=== PATIENT | male | born 1990 | race Caucasian/White ===

== ENCOUNTER 2017-02-05 14:35 | Emergency (ER) | payer SELFPAY ==
[~2017-02-05] VITALS: Ht 188 cm; Wt 113.4 kg
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
[2017-02-05] MEDS ORDERED: DIPHTH,PERTUSS(ACELL),TET TOX 0.5 ML DISP.SYRIN. VAX IM ONE (15:30)
[2017-02-05] MEDS ORDERED: HYDROcodone/APAP 5/325MG 1 TAB TABLET PO ONE (15:45)
[2017-02-05 16:00] VITALS: BP 161/69
[2017-02-05] MEDS ORDERED: CYCL-331 PO (16:17)
[2017-02-05] MEDS ORDERED: NAPR-683 PO (16:17)
== END 2017-02-05 16:30 | disposition home or self-care (01) ==
LOC: ER 14:35
DX: S86.911A Strain of unspecified muscle(s) and tendon(s) at lower leg level, right leg, initial encounter (principal); S00.03XA Contusion of scalp, initial encounter; S30.811A Abrasion of abdominal wall, initial encounter; F90.9 Attention-deficit hyperactivity disorder, unspecified type; F17.210 Nicotine dependence, cigarettes, uncomplicated; V43.52XA Car driver injured in collision with other type car in traffic accident, initial encounter; Y93.89 Activity, other specified; Y99.8 Other external cause status; Y92.488 Other paved roadways as the place of occurrence of the external cause
CPT/HCPCS: 70450; 71010; 72125; 73564; 90471; 90715; 99284-25